=== PATIENT | male | born 1995 | race Caucasian/White ===

== ENCOUNTER 2017-01-08 20:04 | Emergency (ER) | payer OTHER ==
[~2017-01-08] VITALS: Ht 195.6 cm; Wt 109.1 kg
[2017-01-08] MEDS ORDERED: BACTRIM DS TAB1 EACH PO (20:58)
[2017-01-08 21:11] VITALS: BP 139/56
[2017-01-08] MEDS ORDERED: PROAIR HFA0.09 MG/AC IH (21:17)
[2017-01-08] MEDS ORDERED: SINGULAIR PO (21:17)
[2017-01-08] MEDS ORDERED: EPIPEN 2-PAK1 MG/ML MR (21:17)
[2017-01-08] MEDS ORDERED: ADVAIR DISKUS1 DSK IH (21:18)
== END 2017-01-08 21:11 | disposition home or self-care (01) ==
LOC: ED 20:04
DX: L03.113 Cellulitis of right upper limb (principal)